=== PATIENT | male | born 1995 | race African-American/Black ===

== ENCOUNTER 2018-01-10 22:40 | Emergency (ER) | payer MEDICAID ==
[~2018-01-10] VITALS: Ht 180.3 cm; Wt 75.0 kg
[2018-01-11] MEDS ORDERED: CEFTRIAXONE SODIUM 250 MG/VIAL IM ONE (01:30)
[2018-01-11] MEDS ORDERED: AZITHROMYCIN 500 MG TABLET PO ONE (01:30)
[2018-01-11 02:00] VITALS: BP 129/69
== END 2018-01-11 02:04 | disposition home or self-care (01) ==
LOC: ER 22:40
DX: R30.0 Dysuria (principal); Z20.2 Contact with and (suspected) exposure to infections with a predominantly sexual mode of transmission
CPT/HCPCS: 96372; 99283; J0696; Z7610

== ENCOUNTER 2020-09-27 05:31 | Emergency (ER) | payer MEDICAID ==
[~2020-09-27] VITALS: Ht 185.4 cm; Wt 84.0 kg
[2020-09-27 05:33] VITALS: BP 185/84
[2020-09-27] MEDS ORDERED: IBUPROFEN 800MG TABLET PO ONE (06:30)
== END 2020-09-27 08:28 | disposition home or self-care (01) ==
LOC: ER 06:18
DX: M25.561 Pain in right knee (principal); M25.562 Pain in left knee; M54.2 Cervicalgia; G89.11 Acute pain due to trauma; R03.0 Elevated blood-pressure reading, without diagnosis of hypertension; Y93.89 Activity, other specified; Y92.488 Other paved roadways as the place of occurrence of the external cause
CPT/HCPCS: 72040; 73562; 99284